=== PATIENT | female | born 1970 | race Caucasian/White ===

== ENCOUNTER 2020-05-09 07:43 | Day surgery (SDC) | payer MEDICAID, SELFPAY ==
[2020-05-03 10:50] VITALS: BMI 35.6
--- NOTE | 2020-05-08 10:39 | HO.ANESPROP2 ---
Documented by User: Caitlin Sharma 05/08/20 10:41 HPI - Anesthesia Eval Consult details Narrative: 49yo F for colonoscopy: rectal bleeding [facility] Past Medical History Medical History Asthma Congenital abnormality of shape of rib Fatty liver GERD (gastroesophageal reflux disease) Hypercholesterolemia Lower extremity edema Pectus excavatum Sleep apnea Social History Social History Smoking Status: Unknown if ever smoked Use of substances other than those prescribed or required for medical reasons: No Advance Directives: No Meds Allergies Allergy/AdvReac Type Severity Reaction Status Date / Time acetaminophen [From Tylenol] Allergy Unknown Unverified 05/09/20 08:23 apple Allergy Unknown Unverified 05/09/20 08:23 banana Allergy Unknown Unverified 05/09/20 08:23 iodine Allergy Unknown Unverified 05/09/20 08:23 kiwi Allergy Unknown Unverified 05/09/20 08:23 latex Allergy Itching Verified 05/09/20 08:23 penicillin G Allergy Unknown Unverified 05/09/20 08:23 seafood Allergy Unknown Unverified 05/09/20 08:23 Home Medications Medication Instructions Recorded Confirmed Type albuterol sulfate 1 inh INHALATION QID PRN 05/03/20 05/03/20 History diphenhydramine HCl [Benadryl 25 mg PO Q6H PRN 05/03/20 05/03/20 History Allergy] gabapentin 300 mg PO BEDTIME 05/03/20 05/03/20 History Exam Exam Date and Time: May 08, 2020 1039 Height,Weight and Vital Signs: Height 5 ft 6.5 in Weight 101.605 kg Pertinent Lab Results Pertinent Lab Results: Laboratory Tests 03/27/20 15:38 WBC 8.8 Hgb 13.8 Hct 42.8 Plt Count 253 Assessment and Plan Assessment Anesthesia Assessment: Chart Reviewed Documented by User: Brittany Arizmendi 05/09/20 08:25 [facility] Past Medical History Medical History Asthma Congenital abnormality of shape of rib Fatty liver GERD (gastroesophageal reflux disease) Hypercholesterolemia Lower extremity edema Pectus excavatum Sleep apnea Social History Social History Smoking Status: Unknown if ever smoked Use of substances other than those prescribed or required for medical reasons: No Advance Directives: No Meds Allergies Allergy/AdvReac Type Severity Reaction Status Date / Time acetaminophen [From Tylenol] Allergy Unknown Unverified 05/09/20 08:23 apple Allergy Unknown Unverified 05/09/20 08:23 banana Allergy Unknown Unverified 05/09/20 08:23 iodine Allergy Unknown Unverified 05/09/20 08:23 kiwi Allergy Unknown Unverified 05/09/20 08:23 latex Allergy Itching Verified 05/09/20 08:23 penicillin G Allergy Unknown Unverified 05/09/20 08:23 seafood Allergy Unknown Unverified 05/09/20 08:23 Home Medications Medication Instructions Recorded Confirmed Type albuterol sulfate 1 inh INHALATION QID PRN 05/03/20 05/03/20 History diphenhydramine HCl [Benadryl 25 mg PO Q6H PRN 05/03/20 05/03/20 History Allergy] gabapentin 300 mg PO BEDTIME 05/03/20 05/03/20 History Exam Airway Mallampati Class: III TM Dist: >3cm Neck ROM: Full (Broken tooth and molar) Heart: RRR Lungs: CTA BL Assessment and Plan Assessment Anesthesia Assessment: Anesthesia Plan Discussed and Chart Reviewed Final Anesthetic Review NPO: Yes ASA Class: III Final Preanesthetic Review: Consent Obtained/Reviewed and Anes Risks/Benef Reviewed Patient Risk: Intermediate Procedure Risk: Intermediate Anesthetic Plan Anesthetic Plan: MAC: Disposition: Standard PACU
[2020-05-09 08:03] LABS: UPreg QC Valid YES; Urine Pregnancy NEGATIVE (NEGATIVE)
[2020-05-09 08:08] VITALS: BP 146/90; PULSE 88; RESP 20; TEMP 36.3; O2SAT 92
[2020-05-09 09:17] VITALS: BP 139/88; PULSE 96; RESP 14; TEMP 37.1; O2SAT 95
--- NOTE | 2020-05-09 09:24 | PM.OP ---
Brief Operative Note Date of procedure: 05/09/20 Pre-op diagnosis: Rectal bleeding Post-op diagnosis: other (Colon polyps, Internal hemorrhoids, occasional diverticulosis) Procedure: Colonoscopy to cecum with snare polypectomy, and biopsy and removal of polyps Surgeon: Reddy Valle Anesthesia: MAC Estimated blood loss (mL): 3.0 Pathology: other (A. Ascending colon polyp B. Polyp at 40cm C. Polyp at 20cm) Condition: stable Disposition: PACU
[2020-05-09 09:32] VITALS: BP 147/95; PULSE 84; RESP 18; O2SAT 94
--- NOTE | 2020-05-09 09:52 | HO.POSTANES ---
Post Anesthesia Evaluation Post Anesthesia Evaluation Vital Signs: Vital Signs Temp Pulse Resp BP Pulse Ox 05/09/20 09:32 84 18 147/95 H 94 05/09/20 09:17 98.7 F 96 14 139/88 95 05/09/20 08:08 97.3 F 88 20 146/90 H 92 Anesthesia: Monitored Mental Status: Awake Pain Control: Satisfactory Nausea/Vomiting: None Hydration: Adequate Anesthesia-Related Issues: No Anes. Related Issues
--- NOTE | 2020-05-09 10:40 | OP_ITS ---
SURGEON: Reddy Valle MD INDICATIONS: The patient presents for evaluation of intermittent hematochezia. Full consent has been obtained from her for this, including risks of bleeding and perforation. PREOPERATIVE DIAGNOSIS: Hematochezia. POSTOPERATIVE DIAGNOSIS: PROCEDURE PERFORMED: Colonoscopy to the cecum with snare polypectomy, and biopsy and removal of polyp. ESTIMATED BLOOD LOSS: COMPLICATIONS: ANESTHESIA: Monitored anesthesia care. ASSISTANTS: SPECIMENS: POSTOPERATIVE DIAGNOSES: Hematochezia, colon polyps, sigmoid diverticulosis, and internal hemorrhoids. DESCRIPTION OF PROCEDURE: The patient was placed in the left lateral decubitus position. The digital rectal exam revealed no abnormalities. The Olympus video pediatric colonoscope was entered into the rectum and advanced easily to the cecum. Once in the cecum, I did identify cecal pouch with appendiceal orifice and a normal-appearing ileocecal valve. There was transillumination of light deep in the right lower quadrant. There was some residual stool in the cecum, which was irrigated and suctioned away as best as possible. The scope was then slowly withdrawn assessing all mucosal surfaces carefully. For the most part, preparation was very good throughout the colon, although again there were some small areas of liquid and solid stool, which were irrigated and suctioned away as best as possible. In the proximal ascending colon, was approximately 5 or 6 mm polyp, which was snared and recovered by suction. The polypectomy site appeared clean, without any sign of residual polyp nor bleeding. At 40 cm and at 20 cm, were flat approximately 3 mm polyps, which were each biopsied and completely removed with cold biopsy forceps. I did not visualize any other polyps, colitis, nor angiodysplasia. There was a mild amount of sigmoid diverticulosis. In the rectum, scope was retroflexed visualizing small internal hemorrhoids, but no other pathology. The rectal mucosa appeared normal. The scope was straightened out and withdrawn from the patient. She tolerated the procedure well and was returned to the recovery area in stable condition. IMPRESSION: 1. Small colon polyps, status post snare polypectomy, and biopsy and removal. 2. Mild sigmoid diverticulosis. 3. Small internal hemorrhoids. PLAN: The results of the pathology will be checked. I would recommend a repeat colonoscopy in 5 years given the finding of polyps and somewhat limited prep. She was advised not to use any aspirin and NSAIDs for 1 week. She was advised to see me in 1 year for followup of her hepatomegaly, although her recent liver workup was completely negative. This has been discussed with her mother. MD DENNY Drew/JOCELINE / [id number]
== END 2020-05-09 10:25 | disposition home or self-care (01) ==
PROVIDERS: Nurse Practitioner; PCP Family Medicine; Visit Provider Internal Medicine
PROC: 0DJD8ZZ Inspection of Lower Intestinal Tract, Via Natural or Artificial Opening Endoscopic (ICD-10-PCS; CPT 45378; principal; 2020-05-09 08:30)
DX: K62.5 Hemorrhage of anus and rectum (principal); D12.2 Benign neoplasm of ascending colon; K63.5 Polyp of colon; K57.30 Diverticulosis of large intestine without perforation or abscess without bleeding; K64.8 Other hemorrhoids; K21.9 Gastro-esophageal reflux disease without esophagitis; K76.0 Fatty (change of) liver, not elsewhere classified; J45.909 Unspecified asthma, uncomplicated; G47.30 Sleep apnea, unspecified; Z88.8 Allergy status to other drugs, medicaments and biological substances; Z91.040 Latex allergy status; Z88.0 Allergy status to penicillin; Z91.013 Allergy to seafood; Z91.018 Allergy to other foods; Z79.899 Other long term (current) drug therapy
CPT/HCPCS: 45385; 45380; 81025; 88305